=== PATIENT | female | born 1990 | race American Indian/Alaskan Native ===

== ENCOUNTER 2017-09-15 12:14 | Outpatient (CLI) | payer OTHER ==
--- NOTE | 2017-09-15 13:49 | Cat Scan Report ---
CTA chest: History: Chest pain normal PE. Findings: No endobronchial or mediastinal mass. No mediastinal hilar or axillary adenopathy. No aortic aneurysm or pulmonary embolism. No pleural pericardial effusion. No lung consolidation. Moderate-sized sliding hiatal hernia. Impression: No evidence of pulmonary embolism. Moderate-sized sliding hernia
== END 2017-09-15 12:15 | disposition home or self-care (01) ==
LOC: CT 12:14
PROVIDERS: ATTEND Internal Medicine
DX: R07.89 Other chest pain (principal); R06.02 Shortness of breath; K44.9 Diaphragmatic hernia without obstruction or gangrene
CPT/HCPCS: 71275; Q9967